=== PATIENT | female | born 1995 | race Caucasian/White ===

== ENCOUNTER 2021-08-19 19:14 | Emergency (ER) | payer SELFPAY ==
[~2021-08-19] VITALS: Ht 157.5 cm; Wt 63.5 kg
--- NOTE | 2021-08-19 19:28 | NUR ---
AFTER BEING TRIAGED PATIENT WAS PLACED BACK IN WAITING ROOM DUE TO NO BEDS AVAILABLE IN THE ER.
--- NOTE | 2021-08-19 20:36 | NUR ---
PLACED PATIENT IN HALLWAY.
[2021-08-19 20:41] LABS: *BILIRUBIN,URIN NEGATIVE (NEGATIVE); *BLOOD, URINE TRACE (NEGATIVE); *CLARITY,URINE CLEAR (CLEAR); *COLOR,URINE YELLOW (YELLOW); *KETONES,URINE TRACE (NEGATIVE); *UROBILINOGEN,URINE 0.2 E.U./dl (NORMAL); LEUKOCYTE ESTERASE ,URINE TRACE (NEGATIVE); NITRITE, URINE NEGATIVE (NEGATIVE); PH,URINE 6.5 (5.0-8.0); UGLUCOSE NEGATIVE (NEGATIVE)
[2021-08-19 20:42] LABS: *URINE HCG, QUAL NEGATIVE (NEGATIVE)
[2021-08-19 20:46] LABS: BACTERIA,URINE NONE SEEN /HPF (NONE SEEN); SQUAMOUS EPITHELIAL CELL,UR FEW /HPF (NONE SEEN)
[2021-08-19 21:20] LABS: HEMATOCRIT 44.4 % (31.2-41.9); MEAN CORPUSCULAR HEMOGLOBIN 29.9 uug (24.7-32.8); MEAN CORPUSCULAR VOLUME 89.3 fL (75.5-95.3); PLATELET COUNT (AUTO) 208 K/uL (179-408)
[2021-08-19] MEDS: KETOROLAC TROMETHAMINE 30 MG INJ IVP ONE (21:31)
[2021-08-19] MEDS: IV NORMAL SALINE 1000 ML BAG IV ONE (21:31)
[2021-08-19] MEDS ORDERED: KETOROLAC TROMETHAMINE 30 MG INJ ONE (21:38)
[2021-08-19 21:46] LABS: BILIRUBIN,DIRECT 0.1 mg/dL (0.0-0.2); BILIRUBIN,TOTAL 0.5 mg/dL (0.2-1.0); CREATININE 0.8 mg/dL (0.6-1.3); POTASSIUM 3.9 mmol/L (3.5-5.1)
--- NOTE | 2021-08-19 22:29 | NUR ---
PATIENT OUT OF UNIT FOR CT SCAN.
--- NOTE | 2021-08-19 22:40 | NUR ---
PATIENT BACK FROM CT SCAN WITH NO DISTRESS NOTED.
[2021-08-19] MEDS ORDERED: IBUP-1955 PO (23:43)
[2021-08-19] MEDS ORDERED: FLUC200T8 PO (23:43)
[2021-08-19] MEDS ORDERED: HYDR-4209 PO (23:43)
--- NOTE | 2021-08-19 23:52 | NUR ---
IV removed. Catheter intact and site benign. Pressure and 4x4 gauze applied to site. No bleeding noted.
--- NOTE | 2021-08-19 23:56 | NUR ---
Patient discharged to home in stable condition. Written and verbal after care instructions given. Patient verbalizes understanding of instructions. Stressed follow up or return to ER for worsening s/s.
[2021-08-19 23:58] VITALS: BP 120/77
== END 2021-08-20 | disposition home or self-care (01) ==
LOC: ER 19:19
DX: M54.50 Low back pain, unspecified (principal); R10.9 Unspecified abdominal pain; Z82.49 Family history of ischemic heart disease and other diseases of the circulatory system
CPT/HCPCS: 36415; 76770; 84703; 85025; A4663; J1885; J7030